=== PATIENT | male | born 1955 | race Caucasian/White ===

== ENCOUNTER 2019-01-11 10:55 | Emergency (ER) | payer MEDICARE ==
[~2019-01-11] VITALS: Ht 182.9 cm; Wt 63.6 kg
[2019-01-11 10:58] VITALS: Ht 182.9 cm; Wt 63.6 kg
[2019-01-11] MEDS ORDERED: HYDROCODON-ACE1 EA10 PO (11:00)
[2019-01-11] MEDS ORDERED: LISINOPRIL20 MG PO (11:00)
[2019-01-11] MEDS ORDERED: FLOMAX0.4 MG PO (11:00)
[2019-01-11] MEDS ORDERED: KLONOPIN1 MG PO (11:01)
[2019-01-11] MEDS ORDERED: IBUPROFEN400 MG PO (11:01)
[2019-01-11 11:30] LABS: APPEARANCE CLEAR (CLEAR); BACTERIA FEW /hpf (NEGATIVE); BILIRUBIN NEGATIVE (NEGATIVE); COLOR YELLOW (YELLOW); EPITHELIAL CELLS OCC /hpf (0-5); GLUCOSE NEGATIVE (NEGATIVE); KETONE SMALL mg/dL (NEGATIVE); NITRITE NEGATIVE (NEGATIVE); PROTEIN NEGATIVE (NEGATIVE); UROBILINOGEN NORMAL (NORMAL); WHITE CELLS - URINE RARE /hpf (NEGATIVE)
[2019-01-11 11:39] LABS: UDS - AMPHET NEGATIVE QUAL (NEGATIVE); UDS - BARB NEGATIVE QUAL (NEGATIVE); UDS - BENZO NEGATIVE QUAL (NEGATIVE); UDS - COCAINE NEGATIVE QUAL (NEGATIVE); UDS - OPIATE POSITIVE QUAL (NEGATIVE); UDS - PCP NEGATIVE QUAL (NEGATIVE); UDS - THC POSITIVE QUAL (NEGATIVE)
[2019-01-11 11:51] LABS: BASOPHILS 0.3 % (0-2); EOSINOPHILS 1.2 % (0-7); HEMATOCRIT 39.6 % (42.0-54.0); HEMOGLOBIN 13.6 g/dL (13.5-17.5); IMMATURE GRANULOCYTES 0.1 % (0-5); LYMPHOCYTES 25.8 % (15-50); MCH 33.7 pg (26.0-34.0); MCHC 34.3 g/dL (31.0-37.0); MCV 98.3 fL (80.0-100.0); MEAN PLATELET VOLUME 9.6 fL (7.4-10.4); MONOCYTES 6.9 % (2-11); NEUTROPHILS 65.7 % (40-80); PLATELET COUNT 284 10x3/uL (130-400); RBC 4.03 10x6/uL (4.20-6.10); RDW 14.3 % (11.5-14.5); WBC 7.7 10x3/uL (4.8-10.8)
[2019-01-11 11:59] LABS: CALC OSMOLALITY 275 mosm/kg (275-300); CALCIUM 9.2 mg/dL (8.5-10.1); CARBON DIOXIDE 25.7 mmol/L (21.0-32.0); CHLORIDE - SERUM 101 mmol/L (98-107); GLUCOSE 88 mg/dL (74-106); POTASSIUM - SERUM 3.8 mmol/L (3.5-5.1); SODIUM 138 mmol/L (136-145); UREA NITROGEN 14 mg/dL (7-18); eGFR NON AFRICAN AMERICAN 80 mL/min (90-120)
[2019-01-11 12:15] LABS: ALBUMIN 4.1 g/dL (3.4-5.0); ALKALINE PHOSPHATASE 76 U/L (46-116); ALT (SGPT) 26 U/L (10-68); AMYLASE - SERUM 43 U/L (25-115); BILIRUBIN - TOTAL 0.69 mg/dL (0.2-1.3); CKMB 1.8 U/L (0.0-3.6); CREATINE KINASE 92 UL (21-232); LIPASE 62 U/L (73-393); MAGNESIUM - SERUM 1.9 mg/dL (1.8-2.4); PROTEIN - SERUM 7.8 g/dL (6.4-8.2)
[2019-01-11 12:16] LABS: TROPONIN-I < 0.017 ng/mL (0.000-0.060)
[2019-01-11] MEDS ORDERED: AUGMENTIN 875-11 TAB PO (15:07)
[2019-01-11 16:42] VITALS: BP 158/65
== END 2019-01-11 16:42 | disposition home or self-care (01) ==
LOC: D.ER 10:55
PROVIDERS: Family Medicine
DX: J18.9 Pneumonia, unspecified organism (principal); R10.9 Unspecified abdominal pain; I10 Essential (primary) hypertension; F17.210 Nicotine dependence, cigarettes, uncomplicated

== ENCOUNTER → 2019-01-30 11:16 | Outpatient (CLI) | payer MEDICARE ==
[2019-01-11 10:58] VITALS: BMI 19.0
[~2019-01-30 11:16] MED LIST: AUGMENTIN 875-11 TAB PO; FLOMAX0.4 MG PO; HYDROCODON-ACE1 EA10 PO; IBUPROFEN400 MG PO; KLONOPIN1 MG PO; LISINOPRIL20 MG PO
== END | disposition home or self-care (01) ==
LOC: D.RAD 11:16
PROVIDERS: ATTEND Internal Medicine Gastroenterology
DX: J18.9 Pneumonia, unspecified organism (principal)

== ENCOUNTER → 2019-05-25 12:01 | Outpatient (CLI) | payer MEDICARE ==
[2019-01-11 10:58] VITALS: BMI 19.0
== END | disposition home or self-care (01) ==
LOC: D.NM 12:01
PROVIDERS: ATTEND Internal Medicine Gastroenterology
DX: R13.10 Dysphagia, unspecified (principal); R63.0 Anorexia; R10.31 Right lower quadrant pain

== ENCOUNTER → 2019-05-28 12:05 | Outpatient (CLI) | payer MEDICARE ==
[2019-01-11 10:58] VITALS: BMI 19.0
== END | disposition home or self-care (01) ==
LOC: D.RAD 12:05
PROVIDERS: ATTEND Internal Medicine Gastroenterology
DX: R13.10 Dysphagia, unspecified (principal); R63.0 Anorexia; K44.9 Diaphragmatic hernia without obstruction or gangrene

== ENCOUNTER → 2019-07-13 08:46 | Outpatient (CLI) | payer MEDICARE ==
[2019-01-11 10:58] VITALS: BMI 19.0
== END | disposition home or self-care (01) ==
LOC: D.RAD 05-21 10:30
PROVIDERS: ATTEND Internal Medicine Gastroenterology
DX: R13.10 Dysphagia, unspecified (principal); R63.0 Anorexia; R10.31 Right lower quadrant pain

== ENCOUNTER → 2019-11-22 09:51 | Outpatient (CLI) | payer MEDICARE ==
[2019-01-11 10:58] VITALS: BMI 19.0
[2019-11-22 11:24] LABS: ANION GAP 9.7 mmol/L (8-16); BASOPHILS 0.2 % (0-2); CALCIUM 9.4 mg/dL (8.5-10.1); CARBON DIOXIDE 28.9 mmol/L (21.0-32.0); CREATININE - SERUM 1.1 mg/dL (0.6-1.3); EOSINOPHILS 1.4 % (0-7); HEMATOCRIT 43.1 % (42.0-54.0); HEMOGLOBIN 15.2 g/dL (13.5-17.5); IMMATURE GRANULOCYTES 0.2 % (0-5); LYMPHOCYTES 34.1 % (15-50); MCH 34.7 pg (26.0-34.0); MCHC 35.3 g/dL (31.0-37.0); MCV 98.4 fL (80.0-100.0); MEAN PLATELET VOLUME 9.6 fL (7.4-10.4); MONOCYTES 10.6 % (2-11); NEUTROPHILS 53.5 % (40-80); PLATELET COUNT 303 10x3/uL (130-400); POTASSIUM - SERUM 4.6 mmol/L (3.5-5.1); RBC 4.38 10x6/uL (4.20-6.10); RDW 13.5 % (11.5-14.5); WBC 6.6 10x3/uL (4.8-10.8)
[2019-11-22 11:27] LABS: BILIRUBIN NEGATIVE (NEGATIVE); KETONE NEGATIVE (NEGATIVE); NITRITE NEGATIVE (NEGATIVE); UROBILINOGEN NORMAL (NORMAL)
[2019-11-22 12:28] LABS: ERYTHROCYTE SEDIMENTATION RATE 3 mm/hr (0-20)
== END | disposition home or self-care (01) ==
LOC: D.CT 09:51
PROVIDERS: ATTEND Internal Medicine Gastroenterology
DX: K57.30 Diverticulosis of large intestine without perforation or abscess without bleeding (principal); R10.31 Right lower quadrant pain